=== PATIENT | female | born 1985 | race Hispanic/Latino ===

== ENCOUNTER 2018-09-29 06:27 | Day surgery (SDC) | payer BC ==
[2018-09-24 09:37] LABS: Absolute Lymphocytes (CBC) 2.2 K/uL (0.7-4.9); Absolute Monocytes 0.4 K/uL (0.1-1.3); Absolute Neutrophil 5.3 K/uL (1.8-8.0); Basophils % 0.4 % (0-1.3); Eosinophils % 1.5 % (0-4.4); Hematocrit 40.4 % (36.0-45.0); Lymphocytes % 27.4 % (15.3-44.8); MPV 9.6 fL (7.6-11.3); Monocytes % 5.4 % (3.3-12.3); RBC Red Blood Cell Count 4.51 M/uL (3.86-4.86)
[2018-09-24 09:51] LABS: BUN Blood Urea Nitrogen 12 mg/dL (7-18); Bicarbonate 28 mmol/L (21-32); Glucose Level 96 mg/dL (74-106); Sodium Level 138 mmol/L (136-145)
--- OUTSIDE RECORDS SUMMARY | 2018-09-29 06:31 | XMS REPORT ---
:1985 [facility] Address [address] [place] [address] Dr. Be [address] [place] [id number] Care Team Providers Name Role Phone Unavailable Unavailable Unavailable Problems This patient has no known problems. Allergies, Adverse Reactions, Alerts This patient has no known allergies or adverse reactions. Medications This patient has no known medications.
[2018-09-29] MEDS ORDERED: Ringers Lactate 1,000 ML IV ONE ×2 (06:59→08:27)
[2018-09-29] MEDS ORDERED: SCOPOLAMINE HYDROBROMIDE PATCH TD ONE (07:14)
[2018-09-29 07:17] LABS: Specific Gravity 1.025 (1.005-1.030)
[2018-09-29] MEDS ORDERED: CEFOXITIN/SWI 1gm 1 GM/10 ML SYR ONE (07:55)
--- NOTE | 2018-09-29 08:56 | P.BOP ---
Preoperative diagnosis: Pelvic pain Postoperative diagnosis: intrabdominal adhesions, appendicitis, endometriosis, L ovarian cyst Primary procedure: Diagnostic laparoscopy, Laparoscopic appendectomy, KEYUR Estimated blood loss: <10cc Specimen: appendix Findings: intrabdominal adhesions, abnormal appendix, endometriosis, L ovarian cyst Anesthesia: General Complications: None Transferred to: Recovery Room Condition: Good
[2018-09-29] MEDS ORDERED: ONDANSETRON 4 MG/2 ML VIAL ONE (09:16)
[2018-09-29] MEDS ORDERED: GLYCOPYRROLATE 0.2 MG/ML SYR ONE (09:16)
[2018-09-29] MEDS ORDERED: FENTANYL CITR 100 MCG/2 ML ONE (09:16)
[2018-09-29] MEDS ORDERED: DEXAMETHASONE 4 MG/ML VIAL ONE (09:16)
[2018-09-29] MEDS ORDERED: LIDOCAINE 2% MPF 5 ML VIAL ONE (09:16)
[2018-09-29] MEDS ORDERED: MIDAZOLAM HCL 2 MG/2 ML INJ ONE (09:16)
[2018-09-29] MEDS ORDERED: PROPOFOL 200 MG/20 ML VIAL IV ONE (09:16)
[2018-09-29] MEDS ORDERED: ROCURONIUM 50 MG/5 ML VIAL IV ONE (09:16)
[2018-09-29] MEDS: MEPERIDINE HCL 50 MG/ML AMP ONE ×4 (09:18→09:33)
[2018-09-29] MEDS ORDERED: HYDROCODONE/APAP 5/325 MG TAB ONE (10:41)
--- NOTE | 2018-09-29 14:03 | DS ---
Date of Discharge: 09/29/2018 Diagnoses: Intraabdominal pain, intraabdominal adhesions, appendicitis, endometriosis, left ovarian cyst. Procedures: Diagnostic laparoscopy, laparoscopic appendectomy, laparoscopic lysis of adhesions. Disposition: Home. Discharge Instructions: Follow up in my office in 1 week. Call for appointment [phone]. Keep area dry for 48 hours, then may shower. Keep Steri-Strips intact. Medications: See orders. The patient will be discharged home if we can have good pain control. MIKKI/ROSARIO Voice ID: [id number] Report ID: [id number]
--- NOTE | 2018-09-29 14:03 | OP ---
Date of Procedure: 09/29/2018 Surgeon: Jed Akers MD Preoperative Diagnoses: Pelvic pain. Lower abdominal pain. Postoperative Diagnoses: Extensive intraabdominal adhesions, appendicitis, endometriosis, left ovari an cyst, blood in the cul-de-sac. Procedures: Diagnostic laparoscopy, laparoscopic appendectomy, laparoscopic extensive lysis of adhes ions. Specimen: Appendix. Findings: The patient has extensive intraabdominal adhesions. The patient has an inferior abdominal incision. When we got in, we noticed a small amount of about 5 cc to 10 cc of dark blood in the cul -de-sac. We also have a left ovarian luteal cyst present and large ovary. No masses seen. The cyst is translucent. There is no of right ovary. We also found some endometriosis on the cul-de-sac jus t anteriorly, this is an area of about 0.5 x 0.5 cm. The gallbladder, liver, stomach with no gross a bnormalities at least outside the lumen, small bowel, large bowel with no extraluminal masses. Appen romy looks asymmetrical in shape and color. The mid of the appendix looks better compared to the prox imal and distal sides. There are abnormalities with injection and erythema and that will be removed too. Indications: This is the case of a 33-year-old patient who comes to us with chronic abdominal pain, extensive imaging and gynecological and gastrointestinal evaluation. Continue with the same. The be nefits, alternatives, and risks of diagnostic laparoscopy, possible appendectomy, and any other indic ated procedure were fully explained to the patient, which include but are not limited to infection, b leeding, damage to adjacent structures, anesthesia complication, recurrence, OK, and even . She also understands this might not relieve any symptoms. She might need more than one surgical interve ntion. She understands this is a diagnostic procedure, may not relieve her pain. She had an extensi ve workup and many doctor visits including ER, trying to find the etiology of her pain and still unkn own. Description Of Procedure: The patient was brought to the operating room, placed in the supine positi on. Anesthesia was done without complication. Abdominal area was prepped and draped in usual steril e fashion. Marcaine 0.5% injected for local anesthetic, followed by sharp incision of the skin in th e infraumbilical region. Incision was carried down to fascia, which was opened under direct vision. Peritoneum was encountered, opened under direct vision. Vicryl #1 placed inside the fascia. Chasity trocar was carefully introduced. Pneumoperitoneum was obtained. After that, I placed another troca r in the suprapubic area. The patient had extensive adhesions on the midline, lower abdomen, and lef t lower quadrant, so carefully we introduced Endo daquan and with the help of Bovie cauterizer, we pr oceeded to do lysis of adhesions in that area. No bleeding. I have to mention that before we put an y other trocars in, we looked in the area of the cul-de-sac with the findings above of a small amount of blood in that area about 10 cc of what looked like dark old blood there, and preceding over that area there was the left ovary with ovarian cyst, a luteal cyst probably the cause of that. After we did lysis of adhesions, we were able to introduce another 5 mm trocar to continue with a formal diagn ostic lap with findings discussed above. The area of endometriosis in the anterior of the cul-de-sac was small, no more than 0.5-1 cm, about 3 or 4 dark spots consistent with endometriosis visualizatio n. She will need a formal gynecological evaluation. She does also have a left ovarian cyst. I am n ot going to remove the cyst at this time. I took some pictures of that. It looked like some cyst in side, translucent, plus a luteal cyst. She has no cyst on the right side. The area was with no mass es that we can see at and the rest of the findings please see my findings in the beginning of this di ctation. Appendix looked abnormal, so we created a window in the base of the appendix, transected th at with an Endo SHANE 45 mm 3.5, and the mesoappendix with an Endo SHANE 45 mm 2.5. No bleeding. No bow el leak. Appendix removed from abdominal cavity using an EndoCatch from an umbilical incision. This appendix looked abnormal in shape and color, so we cannot rule out intraluminal tumor, so it was rem beckie as a specimen. Irrigation was done. No active bleeding at this time. We removed the trocars u nder direct visualization, looked for lysis of adhesions before that. No bleeding. Closed the fasci a with #1 Vicryl. Irrigated subcutaneous tissue, closed that with 3-0 chromic and skin with 3-0 chronic disease epidemiologist sigifredo in a subcuticular fashion. Steri-Strip on top. Sponge count and instrument counts were correct. The patient tolerated the procedure well. The patient was sent to [facility]covery in stable condition. LIZBETH Voice ID: [id number] Report ID: [id number]
== END 2018-09-29 10:51 | disposition home or self-care (01) ==
LOC: OR 06:27
PROVIDERS: ATTEND Surgery
PROC: 0DNW4ZZ Release Peritoneum, Percutaneous Endoscopic Approach (ICD-10-PCS; 2018-09-29)
PROC: 0DTJ4ZZ Resection of Appendix, Percutaneous Endoscopic Approach (ICD-10-PCS; principal; 2018-09-29 07:30)
DX: K35.80 Unspecified acute appendicitis (principal); K66.0 Peritoneal adhesions (postprocedural) (postinfection); N80.3 Endometriosis of pelvic peritoneum; N83.12 Corpus luteum cyst of left ovary
CPT/HCPCS: 36415; 80048; 81025; 85025; 88304; J2175; J2250; J2405; J2704; J3010

== ENCOUNTER 2019-08-13 13:59 | Emergency (ER) | payer BC ==
[2019-08-13] MEDS ORDERED: NA CHLORIDE 0.9% 1,000 ML ONE (14:41)
[2019-08-13 15:05] LABS: Basophils % 0.2 % (0-1.3); Hematocrit 40.1 % (36.0-45.0); Lymphocytes % 11.5 % (15.3-44.8); MPV 10.1 fL (7.6-11.3)
[2019-08-13] MEDS ORDERED: MORPHINE 4 MG/ML SYR ONE ×2 (15:05→17:44)
[2019-08-13] MEDS ORDERED: ONDANSETRON 4 MG/2 ML VIAL ONE ×2 (15:05→17:44)
[2019-08-13 15:34] LABS: Alkaline Phosphatase 196 U/L (45-117); BUN Blood Urea Nitrogen 11 mg/dL (7-18); Bicarbonate 24 mmol/L (21-32); Bilirubin Direct 2.2 mg/dL (0-0.2); Glucose Level 112 mg/dL (74-106); Lipase 70 U/L (73-393); Potassium 4.1 mmol/L (3.5-5.1); Protein, Total 7.7 g/dL (6.4-8.2); Sodium Level 141 mmol/L (136-145)
[2019-08-13 15:42] LABS: ALT/SGPT 832 U/L (12-78); AST/SGOT 654 U/L (15-37)
--- NOTE | 2019-08-13 17:15 | RAD REPORT ---
EXAM DESCRIPTION: US - Abdomen Exam Limited - 08/13/2019 4:38 pm CLINICAL HISTORY: EPIGASTRIC PAIN Preliminary findings provided at the time of the study. COMPARISON: No comparisons FINDINGS: Mild to moderate amount of sludge is present along with several small less than 5 mm galls tones. There is no wall thickening or pericholecystic fluid. Common bile duct is 10-11 mm in size but no duct stone could be seen. Common bile duct within the hea d of pancreas limited in visualization. Partially imaged liver shows fatty infiltration. IMPRESSION: Multiple small less than 5 mm gallstones are seen with a mild to moderate amount of gall bladder sludge. Enlarged common bile duct at 10-11 mm. No duct stone could be seen. Common bile duct in the head of t he pancreas is poorly visualized.
[2019-08-13] MEDS ORDERED: PIPER/TAZO/NS 3.375gm 3.375 GM/100 ML BAG ONE (17:36)
--- NOTE | 2019-08-13 18:08 | ER ---
Nurse's Notes [facility] Name: Jasmin Dan Age: 34 yrs Sex: Female : 1985 Arrival Date: 08/13/2019 Time: 14:01 Bed 13 Private MD: Diagnosis: Choledocholithiasis Presentation: 08/13 14:14 Presenting complaint: Patient states: I have been having epigastric pain for the last la1 six months, I saw Dr. foster who dx my with gallstones on Thursday, I saw Dr. Akers on and we scheduled sx for next week Thursday but my pain is much worse now. Transition of care: patient was not received from another setting of care. Onset of symptoms was August 13, 2019. Risk Assessment: Do you want to hurt yourself or someone else? Patient reports no desire to harm self or others. Initial Sepsis Screen: Does the patient meet any 2 criteria? No. Patient's initial sepsis screen is negative. Does the patient have a suspected source of infection? No. Patient's initial sepsis screen is negative. Care prior to arrival: None. 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 - Social history:: Smoking status: Patient/guardian denies using tobacco. - Ebola Screening: : No symptoms or risks identified at this time. Screenin:20 Abuse screen: Denies threats or abuse. Nutritional screening: No deficits noted. tw2 Tuberculosis screening: No symptoms or risk factors identified. Fall Risk None identified. Assessment: 15:02 General: Appears uncomfortable, Behavior is calm, cooperative, appropriate for age. tw2 Pain: Complains of pain in epigastric area Pain radiates to right upper quadrant. Neuro: Level of Consciousness is awake, alert, obeys commands, Oriented to person, place, time, situation. Cardiovascular: Heart tones S1 S2 Patient's skin is warm and dry. Respiratory: Airway is patent Respiratory effort is even, unlabored, Respiratory pattern is regular, symmetrical, Breath sounds are clear bilaterally. GI: Bowel sounds present X 4 quads. Reports nausea. : No signs and/or symptoms were reported regarding the genitourinary system. : Urine is clear, phillip urine noted. EENT: No signs and/or symptoms were reported regarding the EENT system. Derm: No signs and/or symptoms reported regarding the dermatologic system. Musculoskeletal: Range of motion: intact in all extremities. 15:21 Reassessment: No changes from previously documented assessment. Patient and/or family tw2 updated on plan of care and expected duration. Pain level reassessed. Patient is alert, oriented x 3, equal unlabored respirations, skin warm/dry/pink. 16:01 Reassessment: US at bedside at this time. tw2 16:28 Reassessment: Patient appears in no apparent distress at this time. Patient and/or 2 family updated on plan of care and expected duration. Pain level reassessed. Patient is alert, oriented x 3, equal unlabored respirations, skin warm/dry/pink. Patient states feeling better. 17:30 Reassessment: Patient appears in no apparent distress at this time. No changes from tw2 previously documented assessment. Patient and/or family updated on plan of care and expected duration. Pain level reassessed. Patient is alert, oriented x 3, equal unlabored respirations, skin warm/dry/pink. 18:41 Reassessment: Patient appears in no apparent distress at this time. No changes from tw2 previously documented assessment. Patient and/or family updated on plan of care and expected duration. Pain level reassessed. Patient is alert, oriented x 3, equal unlabored respirations, skin warm/dry/pink. 19:10 Reassessment: Patient appears in no apparent distress at this time. Patient and/or family updated on plan of care and expected duration. Pain level reassessed. Patient is alert, oriented x 3, equal unlabored respirations, skin warm/dry/pink. 19:43 Reassessment: Report given to Hamzah Jung RN. 20:10 Reassessment: Patient appears in no apparent distress at this time. No changes from previously documented assessment. Patient and/or family updated on plan of care and expected duration. Pain level reassessed. Patient is alert, oriented x 3, equal unlabored respirations, skin warm/dry/pink. Report given to [facility] Patient states feeling better. Patient states symptoms have improved. Vital Signs: 14:17 BP 153 / 68; Pulse 65; Resp 16; Temp 97.4; Pulse Ox 100% on R/A; Weight 93.44 kg; la1 Height 5 ft. 7 in. (170.18 cm); 15:21 BP 130 / 85; Pulse 68; Resp 17; Pulse Ox 99% on R/A; tw2 16:28 BP 113 / 70; Pulse 62; Resp 17; Pulse Ox 98% on R/A; Pain 3/10; tw2 17:30 BP 136 / 83; Pulse 72; Resp 17; Pulse Ox 99% on R/A; tw2 18:41 BP 132 / 79; Pulse 88; Resp 17; Pulse Ox 99% ; tw2 19:45 BP 122 / 84; Pulse 74; Resp 18; Pulse Ox 99% on R/A; wh 14:17 Body Mass Index 32.26 (93.44 kg, 170.18 cm) la1 ED Course: 14:01 Patient arrived in ED. rg4 14:16 Triage completed. la1 14:17 Arm band placed on left wrist. la1 14:19 Nuvia Giron RN is Primary Nurse. tw2 14:20 Blayne Floyd NP is PHCP. pm1 14:20 Marino Jett MD is Attending Physician. pm1 14:20 Bed in low position. Call light in reach. Adult w/ patient. tw2 14:55 Missed attempt(s): 20 gauge in right antecubital area. Bleeding controlled, band aid ms applied, catheter tip intact. 14:57 Inserted saline lock: 22 gauge in right antecubital area, using aseptic technique. tw2 Blood collected. 16:33 Ultrasound completed. Patient tolerated well. Notified NEWSPAPER EDITOR/TESSA lopez. sg3 18:22 initiated a transfer with Minoo from the [facility]. eb 18:41 patient declined at [facility] due to not having GI balloon dipper. eb 18:46 initiated a transfer with Afshan from the [facility] transfer center. eb 18:[address] Caputo the surgeon balloon dipper for [facility] with Blayne RIVERA for patient eb transfer consultation. 19:02 Report given to UYEN Hammer. tw2 20:11 No provider procedures requiring assistance completed. Patient transferred, IV remains in place. Administered Medications: 14:52 Drug: NS 0.9% 1000 ml Route: IV; Rate: 1000 ml; Site: right antecubital; tw2 15:55 Follow up: Response: No adverse reaction; IV Status: Completed infusion; IV Intake: tw2 1000ml 15:12 Drug: Zofran 4 mg Route: IVP; Site: right antecubital; tw2 16:13 Follow up: Response: No adverse reaction tw2 15:13 Drug: morphine 4 mg Route: IVP; Site: right antecubital; tw2 16:13 Follow up: Response: No adverse reaction; Pain is decreased; RASS: Alert and Calm (0) tw2 17:48 Drug: Zofran 4 mg Route: IVP; Site: right antecubital; tw2 18:40 Follow up: Response: No adverse reaction tw2 17:50 Drug: morphine 4 mg Route: IVP; Site: right antecubital; tw2 18:40 Follow up: Response: No adverse reaction; Pain is decreased; RASS: Alert and Calm (0) tw2 17:52 Drug: Zosyn 3.375 grams Route: IVPB; Infused Over: 60 mins; Site: right antecubital; tw2 18:54 Follow up: Response: No adverse reaction; IV Status: Completed infusion tw2 Intake: 15:55 IV: 1000ml; Total: 1000ml. tw2 Outcome: 18:06 ER care complete, transfer ordered by . pm1 20:12 Transferred by ground EMS to [facility], Transfer form completed. X-rays sent w/ patient. Note: Report given to [facility] 20:12 Condition: stable 20:12 Instructed on the need for transfer. 20:14 Patient left the ED. Signatures: Kenzie Maxwell ms, Lee RN RN la1 Blayne Floyd, MIGUEL NEWSPAPER EDITOR pm1 Nuvia Giron RN RN tw2 Dee Roberto Winsy wh Godinez, Sarah Charmaine Combs
--- NOTE | 2019-08-13 18:08 | EDPHYS ---
Physician Documentation [facility] Name: Jasmin Dan Age: 34 yrs Sex: Female : 1985 Arrival Date: 08/13/2019 Time: 14:01 Bed 13 Private MD: ED Physician Marino Jett HPI: 08/13 14:58 This 34 yrs old Female presents to ER via Ambulatory with complaints of pm1 Epigastric Pain. 14:58 The patient presents with abdominal pain in the epigastric area. Onset: The pm1 symptoms/episode began/occurred on and off for the past 6 months but worse the past week. Ultrasound from the 08/05/2019 showed multiple stones and sludge with wall thickening. Has preoperative work up planned for Thursday with surgery on Thursday with Dr. Akers. The symptoms radiate to Associated signs and symptoms: Pertinent positives: nausea, Pertinent negatives: diarrhea, dysuria, fever, vomiting. The symptoms are described as achy. Modifying factors: The symptoms are alleviated by nothing, the symptoms are aggravated by nothing. Severity of pain: in the emergency department the pain is actually worse. The patient has not experienced similar symptoms in the past. The patient has been recently seen by a physician: with similar presenting complaints, GI and Surgery. 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 - Social history:: Smoking status: Patient/guardian denies using tobacco. - Ebola Screening: : No symptoms or risks identified at this time. ROS: 14:58 Constitutional: Negative for fever, chills, and weight loss, Eyes: Negative for injury, pm1 pain, redness, and discharge, ENT: Negative for injury, pain, and discharge, Neck: Negative for injury, pain, and swelling, Cardiovascular: Negative for chest pain, palpitations, and edema, Respiratory: Negative for shortness of breath, cough, wheezing, and pleuritic chest pain. 14:58 Back: Negative for injury and pain, : Negative for injury, bleeding, discharge, and swelling, MS/Extremity: Negative for injury and deformity, Skin: Negative for injury, rash, and discoloration, Neuro: Negative for headache, weakness, numbness, tingling, and seizure. 14:58 Abdomen/GI: Positive for abdominal pain, nausea, Negative for vomiting, diarrhea, constipation. Exam: 14:58 Constitutional: This is a well developed, well nourished patient who is awake, alert, pm1 and in no acute distress. Head/Face: Normocephalic, atraumatic. Neck: Trachea midline, no thyromegaly or masses palpated, and no cervical lymphadenopathy. Supple, full range of motion without nuchal rigidity, or vertebral point tenderness. No Meningismus. Chest/axilla: Normal chest wall appearance and motion. Nontender with no deformity. No lesions are appreciated. Cardiovascular: Regular rate and rhythm with a normal S1 and S2. No gallops, murmurs, or rubs. Normal PMI, no JVD. No pulse deficits. Respiratory: Lungs have equal breath sounds bilaterally, clear to auscultation and percussion. No rales, rhonchi or wheezes noted. No increased work of breathing, no retractions or nasal flaring. 14:58 Back: No spinal tenderness. No costovertebral tenderness. Full range of motion. Skin: Warm, dry with normal turgor. Normal color with no rashes, no lesions, and no evidence of cellulitis. MS/ Extremity: Pulses equal, no cyanosis. Neurovascular intact. Full, normal range of motion. 14:58 Abdomen/GI: Inspection: abdomen appears normal, Bowel sounds: normal, Palpation: mild abdominal tenderness, in the epigastric area, mass, is not appreciated, rebound tenderness, is not appreciated. 14:58 Neuro: Orientation: is normal, Motor: is normal, moves all fours. Vital Signs: 14:17 BP 153 / 68; Pulse 65; Resp 16; Temp 97.4; Pulse Ox 100% on R/A; Weight 93.44 kg; la1 Height 5 ft. 7 in. (170.18 cm); 15:21 BP 130 / 85; Pulse 68; Resp 17; Pulse Ox 99% on R/A; tw2 16:28 BP 113 / 70; Pulse 62; Resp 17; Pulse Ox 98% on R/A; Pain 3/10; tw2 17:30 BP 136 / 83; Pulse 72; Resp 17; Pulse Ox 99% on R/A; tw2 18:41 BP 132 / 79; Pulse 88; Resp 17; Pulse Ox 99% ; tw2 19:45 BP 122 / 84; Pulse 74; Resp 18; Pulse Ox 99% on R/A; wh 14:17 Body Mass Index 32.26 (93.44 kg, 170.18 cm) la1 MDM: 14:20 Patient medically screened. pm1 17:30 Counseling: I had a detailed discussion with the patient and/or guardian regarding: the pm1 historical points, exam findings, and any diagnostic results supporting the discharge/admit diagnosis, lab results, radiology results, the need to transfer to another facility, [facility] does not immediately have the required specialist. 17:36 Data reviewed: vital signs. pm1 17:39 Physician consultation: Jed Akers MD was called at 17:39, Left message. Patient pm1 requested contact him for his recommendations. Prior to calling Oswald I informed the patient that I am concerned for choledocholithiasis with CBD dilation to 1 cm and we do not have GI assembly instructions writer today and MRI is not available until Thursday morning. 18:02 Physician consultation: Jed Akers MD regarding consult, patient's condition, after pm1 a discussion of the case, a recommendation for transfer for higher level of care is made, For GI speciality/ERCP due to choledocholithiasis. 18:20 ED course: Patient preference to go to [facility] if an option. If not then would pm1 like to go to [facility]. 18:45 ED course: [facility] without GI on-call. pm1 19:00 Physician consultation: Surgeon EFRAÍN Malcolm MD regarding regarding transfer, patient's pm1 condition, and will see patient in ED, at [facility]. 08/13 14:35 Order name: Basic Metabolic Panel pm1 08/13 14:35 Order name: CBC with Diff pm1 08/13 14:35 Order name: Creatinine for Radiology pm1 08/13 14:35 Order name: Hepatic Function pm1 08/13 14:35 Order name: Lipase pm1 08/13 15:02 Order name: Urine Dipstick--Ancillary (enter results) eb 08/13 14:35 Order name: US Abdomen Limited pm1 08/13 15:02 Order name: Urine --Ancillary (enter results) eb 08/13 15:06 Order name: CBC with Automated Diff; Complete Time: 15:19 EDMS 08/13 15:42 Order name: Basic Metabolic Panel; Complete Time: 15:44 EDMS 08/13 15:42 Order name: Liver (Hepatic) Function; Complete Time: 15:44 EDMS 08/13 15:42 Order name: Lipase; Complete Time: 15:44 EDMS 08/13 15:43 Order name: Creatinine (Radiology Only); Complete Time: 15:44 EDMS 08/13 17:43 Order name: US; Complete Time: 18:01 EDMS 08/13 14:35 Order name: IV Saline Lock; Complete Time: 14:56 pm1 08/13 14:35 Order name: Labs collected and sent; Complete Time: 14:56 pm1 08/13 14:35 Order name: NPO; Complete Time: 14:37 pm1 08/13 14:35 Order name: Urine Dipstick-Ancillary (obtain specimen); Complete Time: 14:56 pm1 08/13 14:35 Order name: Urine Test (obtain specimen); Complete Time: 14:56 pm1 Administered Medications: 14:52 Drug: NS 0.9% 1000 ml Route: IV; Rate: 1000 ml; Site: right antecubital; tw2 15:55 Follow up: Response: No adverse reaction; IV Status: Completed infusion; IV Intake: tw2 1000ml 15:12 Drug: Zofran 4 mg Route: IVP; Site: right antecubital; tw2 16:13 Follow up: Response: No adverse reaction tw2 15:13 Drug: morphine 4 mg Route: IVP; Site: right antecubital; tw2 16:13 Follow up: Response: No adverse reaction; Pain is decreased; RASS: Alert and Calm (0) tw2 17:48 Drug: Zofran 4 mg Route: IVP; Site: right antecubital; tw2 18:40 Follow up: Response: No adverse reaction tw2 17:50 Drug: morphine 4 mg Route: IVP; Site: right antecubital; tw2 18:40 Follow up: Response: No adverse reaction; Pain is decreased; RASS: Alert and Calm (0) tw2 17:52 Drug: Zosyn 3.375 grams Route: IVPB; Infused Over: 60 mins; Site: right antecubital; tw2 18:54 Follow up: Response: No adverse reaction; IV Status: Completed infusion tw2 Disposition: 08/14 13:25 Co-signature as Attending Physician, Marino Jett MD I agree with the assessment and [facility] plan of care. Disposition: 08/13/19 18:06 Transfer ordered to [facility]. Diagnosis is Choledocholithiasis. - Reason for transfer: Specialty. - Accepting physician is Dr. Malcolm. - Condition is Stable. - Problem is new. - Symptoms have improved. Signatures: Dispatcher [employer] EDCA Marino Jett MD MD cha Attema, Lee, RN RN la1 Blayne Floyd, WELDER/FABRICATOR WELDER/FABRICATOR pm1 Nuvia Giron RN RN tw2 Harman Freed [employer]rections: (The following items were deleted from the chart) 08/13 19:06 18:06 08/13/2019 18:06 Transfer ordered to [facility]. Diagnosis is pm1 Choledocholithiasis. Reason for transfer: Higher level of care. Accepting physician is [facility]. Condition is Stable. Problem is new. Symptoms have improved. pm1 20:14 19:06 08/13/2019 18:06 Transfer ordered to [facility]. Diagnosis is wh Choledocholithiasis. Reason for transfer: Specialty. Accepting physician is Dr. Malcolm. Condition is Stable. Problem is new. Symptoms have improved. pm1
[2019-08-13 20:27] LABS: Urine Blood TRACE (NEG); Urine Glucose NEGATIVE (NEG); Urine Protein TRACE (NEG); Urine pH 5.5 (5.0-7.0)
[2019-08-13 21:37] VITALS: TEMP 98.4
[2019-08-13 21:53] VITALS: BP 122/84; O2SAT 99
--- OUTSIDE RECORDS SUMMARY | 2019-08-15 06:18 | XMS REPORT ---
:1985 [facility] Address [address] [place] [address] Dr. Be [address] [place] [id number] Care Team Providers Name Role Phone Unavailable Unavailable Unavailable Problems This patient has no known problems. Allergies, Adverse Reactions, Alerts This patient has no known allergies or adverse reactions. Medications This patient has no known medications.
== END 2019-08-13 20:14 | disposition short-term general hospital (02) ==
LOC: ER 13:59
DX: K80.50 Calculus of bile duct without cholangitis or cholecystitis without obstruction (principal)
CPT/HCPCS: 96365; 96361; 85025; 80048; 36415; 81025; 80076; 81003; 83690; 76705; 96375; 99285; J2543; J7030; J2405 ×2

== ENCOUNTER 2019-08-19 11:07 | Day surgery (SDC) | payer BC ==
[2019-08-15 11:51] LABS: Absolute Lymphocytes (CBC) 1.4 K/uL (0.7-4.9); Basophils % 0.4 % (0-1.3); Hematocrit 36.8 % (36.0-45.0); Lymphocytes % 20.4 % (15.3-44.8); MPV 9.9 fL (7.6-11.3); RBC Red Blood Cell Count 4.16 M/uL (3.86-4.86)
[2019-08-15 12:05] LABS: BUN Blood Urea Nitrogen 8 mg/dL (7-18); Bicarbonate 27 mmol/L (21-32); Glucose Level 80 mg/dL (74-106); Potassium 3.8 mmol/L (3.5-5.1); Sodium Level 142 mmol/L (136-145)
[2019-08-15 12:20] LABS: Bilirubin Direct 0.3 mg/dL (0-0.2); Bilirubin Total 0.6 mg/dL (0.2-1.0); Protein, Total 7.3 g/dL (6.4-8.2)
--- OUTSIDE RECORDS SUMMARY | 2019-08-19 11:11 | XMS REPORT ---
:1985 [facility] Address [address] [place] [address] Dr. Be [address] [place] [id number] Care Team Providers Name Role Phone Unavailable Unavailable Unavailable Problems This patient has no known problems. Allergies, Adverse Reactions, Alerts This patient has no known allergies or adverse reactions. Medications This patient has no known medications.
[2019-08-19] MEDS ORDERED: Ringers Lactate 1,000 ML IV ONE (11:20)
[2019-08-19] MEDS ORDERED: CEFOXITIN/SWI 1gm 1 GM/10 ML SYR ONE (11:20)
[2019-08-19 11:34] LABS: Specific Gravity >= 1.030 (1.005-1.030)
[2019-08-19] MEDS ORDERED: GLYCOPYRROLATE 0.2 MG/ML SYR ONE ×2 (12:12→13:06)
[2019-08-19] MEDS ORDERED: FENTANYL CITR 100 MCG/2 ML ONE (12:12)
[2019-08-19] MEDS ORDERED: ROCURONIUM 50 MG/5 ML VIAL IV ONE (12:12)
[2019-08-19] MEDS ORDERED: dexAMETHasone 10 MG/ML VIAL ONE (12:12)
[2019-08-19] MEDS ORDERED: PROPOFOL 200 MG/20 ML VIAL IV ONE (12:12)
[2019-08-19] MEDS ORDERED: LIDOCAINE 2% MPF 5 ML VIAL ONE (12:12)
[2019-08-19] MEDS ORDERED: MIDAZOLAM HCL 2 MG/2 ML INJ ONE (12:12)
[2019-08-19] MEDS ORDERED: NEOSTIGMINE 1 MG/ML -5 ML ONE (13:06)
[2019-08-19] MEDS: HYDROMORPHONE HCL 2 MG/ML inj ONE ×4 (13:25→13:40)
--- NOTE | 2019-08-19 13:28 | P.BOP ---
Preoperative diagnosis: acute cholecystitis, symptomatic cholelithiasis, choledocholithiasis, s/p E Postoperative diagnosis: same Primary procedure: Laparoscopic cholecystectomy Stunt Driver: Sadie Calderon) Estimated blood loss: <10cc Specimen: gb Findings: as above Anesthesia: General Complications: None Transferred to: Recovery Room Condition: Good
[2019-08-19] MEDS ORDERED: ONDANSETRON 4 MG/2 ML VIAL ONE (13:41)
[2019-08-19] MEDS: HYDROMORPHONE HCL 1 MG/ML INJ ONE ×2 (13:48→13:57)
[2019-08-19] MEDS ORDERED: CODEINE 30MG/APAP 300MG TAB ONE (14:32)
[2019-08-19 14:53] VITALS: BP 124/77; TEMP 97.9; O2SAT 97
--- NOTE | 2019-08-20 00:44 | DS ---
Date of Discharge: 08/19/2019 Diagnoses: Acute cholecystitis, symptomatic cholelithiasis, choledocholithiasis and status post endo scopic retrograde cholangiopancreatography. Procedure: Laparoscopic cholecystectomy. Disposition: Home. Activity: As tolerated. No heavy lifting. Followup: Follow up in my office in 1 week. Call for appointment, [phone]. Keep area dry for 48 h ours, then may shower. Keep Steri-Strips intact. Medications: Include Tylenol No. 3 q.4 hours p.r.n. pain, Augmentin 875 p.o. q.12, Zofran 4 every 6 p.r.n. nausea. MIKKI/ROSARIO Voice ID: [id number] Report ID: [id number]
--- NOTE | 2019-08-20 00:59 | OP ---
Date of Procedure: 08/19/2019 Surgeon: Jed Akers MD Supervisor Transcribing Operators: Sadie Perez. Preoperative Diagnoses: Acute cholecystitis, symptomatic cholelithiasis, choledocholithiasis, status post endoscopic retrograde cholangiopancreatography. Postoperative Diagnoses: Acute cholecystitis, symptomatic cholelithiasis, choledocholithiasis, statu s post endoscopic retrograde cholangiopancreatography. Procedure Performed: Laparoscopic cholecystectomy. Specimen: Gallbladder. Anesthesia: General plus local. Indications: This is the case of a female, who comes to us with a history of acute cholecystitis, sy mptomatic cholelithiasis. The patient had an MRCP, found to have a distal common bile duct, went to Dr. Jackson, had an ERCP done and stent placement yesterday and the patient was sent to us for cholecyst ectomy today. The benefits, alternatives, and risks of laparoscopic, possible open cholecystectomy w ere fully explained, which include but are not limited to infection, bleeding, damage to adjacent str uctures, anesthesia complication, choledocholithiasis, bile leak, pancreatitis, CT, and even . She also understands this may not relieve any symptoms. She might need more than one surgical interv ention. She understood, signed the consent. The patient also understands she has to follow up with Dr. Jackosn for removal of the stent in the next few weeks. Description Of Procedure: Patient was brought to the operating room, placed in supine position. Ane sthesia was done without complication. Abdominal area was prepped and draped in usual sterile fashio n. Marcaine 0.5% was injected for local anesthetic, followed by sharp incision of the skin in the in fraumbilical region. Incision was carried down to the fascia, which was opened under direct vision. Peritoneum was encountered, opened under direct vision. Vicryl #1 placed inside of the fascia. Has son trocar was carefully introduced. No bleeding was obtained. I placed 3 more trocars, 5 mm each o ne of them; 1 in the epigastric area, 2 in the right upper quadrant using the same technique, which c onsisted of local anesthetic, sharp incision of the skin, and introduction of the trocars under direc t vision. This allowed me to put a grasper in the fundus of the gallbladder, another grasper in the infundibulum, retracted the gallbladder in the inferolateral fashion exposing the triangle of Calot, obtaining critical view safety. I have to mention before this, as requested by the patient, we visua lized the area of the abdomen and the stomach looks soft and compressible. The liver with no masses seen. At the area of pelvis we noticed old little amount of blood, may be just physiological from th e retrograde fallopian tube it is hard to know, I do not see any tumors in that area. So, we are goi ng to allow her to just go to the ict educator and try to make sure that is not the blood coming from her menses from the uterus since we have no etiology in this area and does not seem to be fresh. On ce again, we go to the area of the gallbladder. Once we had the gallbladder in the inferolateral fas hion exposing the triangle of Calot, we obtained critical view of safety. We retracted the gallbladd er in the inferolateral fashion exposing the triangle of Calot. The cystic duct and cystic artery we re clearly isolated, freed circumferentially, and a connection between those and the gallbladder were clearly identified. I proceeded to ligate those by using at least 3 clips proximal, 1 clip distal, ligation in the middle. Same was done with the cystic artery. No bile leak. No bleeding. The gall bladder was removed from liver using Bovie cauterizer and removed from abdominal cavity using an Endo Catch through the umbilical incision. The area was inspected once again. No bile leak. No bleeding . Gallbladder fossa was intact. Clips were intact. At that moment, I proceeded to remove the troca rs under direct vision. Deflated the pneumoperitoneum, closed the fascia with #1 Vicryl, irrigated s ubcutaneous tissue, closed that with 3-0 chromic and the skin in a subcuticular fashion with 3-0 lunchroom mother sigifredo and Steri-Strips on top. Sponge count and instrument counts were correct. Patient tolerated the procedure well. Patient was sent to Recovery in stable condition. MIKKI/ROSARIO Voice ID: [id number] Report ID: [id number]
== END 2019-08-19 15:20 | disposition home or self-care (01) ==
LOC: OR 11:07
PROVIDERS: ATTEND Surgery
PROC: 0FT44ZZ Resection of Gallbladder, Percutaneous Endoscopic Approach (ICD-10-PCS; principal; 2019-08-19 12:30)
DX: K80.12 Calculus of gallbladder with acute and chronic cholecystitis without obstruction (principal); Z98.890 Other specified postprocedural states; Z98.84 Bariatric surgery status; Z90.721 Acquired absence of ovaries, unilateral; Z90.79 Acquired absence of other genital organ(s); Z80.8 Family history of malignant neoplasm of other organs or systems; Z83.3 Family history of diabetes mellitus
CPT/HCPCS: 85025; 80048; 36415; 82150; 81025; 80076; 88304; 83690; 47562; J2704; J2250; J1170 ×2; J3010; J1100; J2710; J7120; J2405

== ENCOUNTER 2022-10-14 12:43 | Day surgery (SDC) | payer BC ==
[2022-10-08 11:37] LABS: Specific Gravity 1.014 (1.005-1.030); Urine Bacteria None Seen /HPF (<20); Urine Bilirubin NEGATIVE (Negative); Urine Blood 1+ (Negative); Urine Clarity Clear (Clear); Urine Color Light-Yellow (Yellow); Urine Glucose NEGATIVE (Negative); Urine Mucus Slight /HPF (None Seen); Urine Protein NEGATIVE (Negative); Urine Urobilinogen Normal (Normal)
[2022-10-08 11:38] LABS: Absolute Lymphocytes (CBC) 2.5 K/uL (0.7-4.9); Hematocrit 40.9 % (36.0-45.0); Lymphocytes % 29.2 % (15.3-44.8); MCV 86.6 fL (80-100); MPV 9.1 fL (7.6-11.3); RBC Red Blood Cell Count 4.72 M/uL (3.86-4.86)
[~2022-10-14 12:43] MED LIST: CEFAZOLIN 3 GM in NA CHLORIDE 0.9% 100 ML IVPB SCH
[2022-10-14] MEDS ORDERED: SCOPOLAMINE HYDROBROMIDE PATCH TD ONE (12:50)
[2022-10-14] MEDS ORDERED: Ringers Lactate 1,000 ML IV ONE ×4 (12:50→15:24)
[2022-10-14] MEDS ORDERED: BUPIVACAINE 0.25% PF 30 ML VIAL ONE ×2 (12:59→15:09)
[2022-10-14] MEDS ORDERED: NA CHLORIDE 0.9% 0 ML ONE (13:08)
[2022-10-14] MEDS ORDERED: propofoL 200 MG/20 ML VIAL IV ONE (13:19)
[2022-10-14] MEDS ORDERED: ROCURONIUM 50 MG/5 ML VIAL IV ONE (13:22)
[2022-10-14] MEDS ORDERED: FENTANYL CITR 100 MCG/2 ML ONE ×2 (13:22→14:23)
[2022-10-14] MEDS ORDERED: LIDOCAINE 2% MPF 5 ML VIAL ONE (13:23)
[2022-10-14] MEDS ORDERED: ONDANSETRON 4 MG/2 ML VIAL ONE ×2 (13:23→13:44)
[2022-10-14] MEDS ORDERED: MIDAZOLAM HCL 2 MG/2 ML INJ ONE (13:23)
[2022-10-14] MEDS ORDERED: dexAMETHasone 10 MG/ML VIAL ONE (13:43)
[2022-10-14] MEDS ORDERED: KETAMINE HCL 500 MG/5 ML VIAL ONE (13:57)
[2022-10-14] MEDS: BUPIVACAINE 0.25% PF 30 ML VIAL ONE ×2 (14:19→14:21)
[2022-10-14] MEDS ORDERED: MORPHINE 10 MG/ML VIAL ONE (15:52)
[2022-10-14] MEDS ORDERED: KETOROLAC 30 MG/ML INJ ONE (15:54)
[2022-10-14] MEDS ORDERED: Mastisol Adhesive Liq ONE (16:13)
[2022-10-14] MEDS ORDERED: EPHEDRINE SULF 50 MG/ML VIAL ONE (16:19)
[2022-10-14] MEDS: Ringers Lactate 1,000 ML IV ONE ×2 (17:13→17:25)
[2022-10-14 18:12] VITALS: BP 142/86; TEMP 97.1; O2SAT 97
[2022-10-14] MEDS ORDERED: HYDROCODONE/APAP 5/325 MG TAB ONE (18:15)
--- NOTE | 2022-10-15 19:43 | OP ---
Date of Procedure: 10/14/2022 Surgeon: Ann Gill MD Preoperative Diagnosis: Abnormal uterine bleeding-L. Postoperative Diagnoses: Abnormal uterine bleeding-L, endometriosis, left ovarian mass, most likely endometrioma. Procedures Performed: Total laparoscopic hysterectomy, left salpingo- oophorectomy, endometriosis excision, extensive lysis of adhesions Anesthesia: General endotracheal. Estimated Blood Loss: Minimal. Specimens: Uterus, left tube, and ovary. Complications: No complications. Drains: No drains. Condition: Stable. Findings: Left ovary was completely replaced by a large endometrioma. A very small part of the left ovary was visualized that appeared to be normal. The cyst was removed intact without any spillage, although this appeared to be an endometrioma, it could not be ruled out to be a neoplastic mass. No other significant endometriosis was noted other than the scar tissue at the left uterosacral ligament consistent with possible endometriosis. The right ovary and tube were already absent. After informed consent was verified, patient was taken back to the OR. Antibiotics were given for ACOG guidelines. The patient was placed in supine fashion on the operating table. General anesthesia was given. She was placed in dorsal lithotomy position using Steve stirrups. Abdomen, vulva, vagina, and perineum prepped and draped in a sterile fashion. Tran was placed to drain the bladder. Large VCare introduced into the uterus and fixed in place. This area was draped. 1 cm infraumbilical incision made with a scalpel using the open laparoscopy technique. Fascia was then incised, tagged with 0 Vicryl sutures, and peritoneum entered sharply. S retractors were placed, Chasity introduced, and site of entry was checked. There was a significant amount of scarring of the bowel as well as omentum to the anterior abdominal wall. This was precluding any opportunity for placement of any further left-sided trocars. Also difficult to visualize the left adnexa and the cyst. Only the uterus was visualized at this point. So, a 5 mm right lower quadrant and right upper quadrant 5 ports were placed. Then later, 5 left lower quadrant and left upper quadrant ports were placed as well. A 10 suprapubic port was placed without any problems. The adhesions were systematically taken down from the left upper abdomen all the way down coming to the lower abdomen and then as I noticed and the adhesions of the bowel was taken down that there was a hernia at the lower abdominal wall site, almost at the level of a Pfannenstiel scar, so this fascial defect was identified. The defect was isolated. The contents which were omentum were carefully dissected out of the hernia sac and then dropped back down into the peritoneal cavity. The posterior rectus was visualized at this point. No posterior rectus sheath was present, but this is also at a point where the posterior rectus sheath could be absent, but this appeared to be a ventral hernia low in her midline anterior abdominal wall. Once all these were dropped and I could visualize the left ovary and the tube, this took about at least 30 to 45 minutes of the procedures was moderate complexity. Attention was then directed to the ovary and the tube. The was called and we discussed about what her desires would be in preserving the ovary, removing the cyst, with the risk that this could rupture and also that they could be no functioning ovary left behind or if this could be left alone and she could come back at a second time for removal of the ovary. Patient's felt strongly that she would be most upset if she had to come back for a second surgery to take care of this, as this was causing pain. So, proceeded to decide that the left ovary would be removed along with the cyst, which is also safer for a neoplastic mass. So, the left IP ligament was opened up by opening the peritoneum lateral to it and then isolated on its pedicle and the LigaSure was used to take this down after visualizing the ureter. Then, the mesosalpinx was taken down as well. Tube was removed and handed out separately. Then, round ligament was taken down and the peritoneum opened up and dissected inferiorly to get to the bladder flap anteriorly. The bladder was dissected inferiorly sharply as well as with LigaSure. The anterior vaginal wall was exposed on the opposite side, similar dissection was performed to open the remnant of the mesosalpinx as the left tube and ovary were removed and then the round ligament taken down, the anterior broad ligament opened up, and connected to the bladder flap and dissected further. Posteriorly taken down the posterior broad ligament all the way to the level of the cup and dissecting the ureter laterally. It was significantly easier on the right side than the left. After the vessels were identified and isolated, the uterine vessel was taken down with the help of the LigaSure and the bipolar basket tip as well. Went on to take down the cardinal ligaments on the side and attention directed to the left side. On the left side, the broad ligament was opened up all the way to isolate the ureter and dissected separate from the uterosacral ligament as there was a good amount of scar tissue here. Once this was done and the posterior peritoneum was incised towards the VCare cup, the ureter fell laterally and I was able to isolate the uterine vessels. The vessels were taken with the help of the LigaSure and then with the monopolar. The cardinal ligaments were taken down as well and circumferential colpotomy performed with monopolar hook blade and the specimen pulled out through the vagina. The ovary and uterus were attached and the tube was separate. Once all the specimens were pulled out through the vagina and the vaginal occluder was placed for maintaining pneumoperitoneum. 2-0 PDS sutures were taken and 5 PDS sutures were placed at 2 simple sutures at the angles and 3 [id number] to have a very good closure of the entire cuff. Once this was done, the uterosacrals were also incorporated and here for apical support and her closure appeared to be well supported at the apex. Thorough irrigation and suction were performed and then the ports were removed under direct vision. Marcaine injected at the beginning and the end of the port placement and removal. Gas was desufflated. The umbilical port was removed. The fascia was closed with the help of 0 Vicryl sutures, tacked to the edges and then simple 0 Vicryl sutures at the deep stitch in the suprapubic region as it was very difficult to get to the fascial level due to her abdominoplasty. All skin incisions closed with the help of interrupted 3-0 chromic and Tran and vaginal occluder were removed. Instrument, needle, and sponge counts were correct at the end of the case. EBL was minimal 50 cc. The patient was recovered from anesthesia and taken to PACU in stable condition. The was deep briefed about her procedure as well as her mother and they were quite understanding of the procedure and the decision making. She has a 1-week followup appointment with me to be able to start hormone therapy on this patient with estrogen when she comes for first week postop. KEYSHAWN/ROSARIO Voice ID: [id number] Report ID: [id number] MACY
== END 2022-10-14 18:40 | disposition home or self-care (01) ==
LOC: OR 12:43
PROVIDERS: ATTEND Obstetrics & Gynecology
PROC: 0UT64ZZ Resection of Left Fallopian Tube, Percutaneous Endoscopic Approach (ICD-10-PCS; 2022-10-14)
PROC: 0UT14ZZ Resection of Left Ovary, Percutaneous Endoscopic Approach (ICD-10-PCS; 2022-10-14)
PROC: 0DBU4ZZ Excision of Omentum, Percutaneous Endoscopic Approach (ICD-10-PCS; 2022-10-14)
PROC: 0DNU4ZZ Release Omentum, Percutaneous Endoscopic Approach (ICD-10-PCS; 2022-10-14)
PROC: 0UT94ZZ Resection of Uterus, Percutaneous Endoscopic Approach (ICD-10-PCS; principal; 2022-10-14 12:15)
DX: N93.9 Abnormal uterine and vaginal bleeding, unspecified (principal); D25.9 Leiomyoma of uterus, unspecified; N83.02 Follicular cyst of left ovary; K66.0 Peritoneal adhesions (postprocedural) (postinfection); N80.30 Endometriosis of pelvic peritoneum, unspecified
CPT/HCPCS: 36415; 81001; 85025; 86850; 86900; 86901; 88307; J0690; J1100; J2001; J2250; J2405; J2704; J3010; J7030; J7120